=== PATIENT | male | born 1985 | race African-American/Black ===

== ENCOUNTER 2022-05-26 08:04 | Emergency (ER) | payer OTHER ==
[~2022-05-26] VITALS: Ht 185.4 cm; Wt 88.1 kg
[2022-05-26 08:09] VITALS: BP 147/99
[2022-05-26 08:31] VITALS: BP 151/127
[2022-05-26 09:00] VITALS: BP 137/99
[2022-05-26 09:30] VITALS: BP 132/93
[2022-05-26 09:57] VITALS: BP 132/93
== END 2022-05-26 09:57 | disposition home or self-care (01) | DRG 556 ==
LOC: ED 08:04
DX: M79.671 Pain in right foot (principal); W31.82XA Contact with other commercial machinery, initial encounter; Y92.89 Other specified places as the place of occurrence of the external cause; Y99.0 Civilian activity done for income or pay